=== PATIENT | female | born 1930 ===

== ENCOUNTER 2017-08-19 12:06 | Inpatient (IN) | payer OTHER ==
[~2017-08-19] VITALS: Ht 157.5 cm; Wt 64.0 kg
[~2017-08-19 12:06] MED LIST: AMIODARONE HCL200 MG NGT; ATENOLOL25 MG; Intestinex CAP PO; LASIX20 MG PO; METOPROLOL TAR100 MG PO; MONTELUKAST SOD10 MG PO; NeurRONTin 250MG/5ML PO; PANTOPRAZOLE SO40 MG PO; PAXIL20 MG; PRE PROTEIN 2030 ML PO; SUCRALFATE1 GM/10 ML PO; TORADOL60 MG; XOPENEX0.63 MG/3 IH
[2017-10-02] MEDS ORDERED: RISPERDAL0.5 MG PO (16:32)
[2017-10-02] MEDS ORDERED: ELIQUIS2.5 MG PO (16:40)
[2017-10-02] MEDS ORDERED: CLONAZEPAM0.5 MG PO (16:41)
== END 2017-10-02 17:08 | disposition other institution (70) | DRG 853 ==
LOC: ER 12:06 → MEDJ 18:38 → MEDI 18:38 → MEDJ 18:38 → ICU-2 08-21 20:23 → ICU 08-21 20:24 → MEDI 09-18 20:24 → SURH 09-18 20:24
PROC: BW21ZZZ Computerized Tomography (CT Scan) of Abdomen and Pelvis (ICD-10-PCS; 2017-08-19)
PROC: 4A12X4Z Monitoring of Cardiac Electrical Activity, External Approach (ICD-10-PCS; 2017-08-19)
PROC: B246ZZZ Ultrasonography of Right and Left Heart (ICD-10-PCS; 2017-08-20)
PROC: CW1NLZZ Planar Nuclear Medicine Imaging of Whole Body using Gallium 67 (Ga-67) (ICD-10-PCS; 2017-08-20)
PROC: 06HM33Z Insertion of Infusion Device into Right Femoral Vein, Percutaneous Approach (ICD-10-PCS; principal; 2017-08-21)
PROC: 02HV33Z Insertion of Infusion Device into Superior Vena Cava, Percutaneous Approach (ICD-10-PCS; 2017-08-21)
PROC: 5A1D70Z Performance of Urinary Filtration, Intermittent, Less than 6 Hours Per Day (ICD-10-PCS; 2017-08-22)
PROC: BW40ZZZ Ultrasonography of Abdomen (ICD-10-PCS; 2017-08-29)
PROC: 30233N1 Transfusion of Nonautologous Red Blood Cells into Peripheral Vein, Percutaneous Approach (ICD-10-PCS; 2017-08-29)
PROC: 05H633Z Insertion of Infusion Device into Left Subclavian Vein, Percutaneous Approach (ICD-10-PCS; 2017-09-08)
PROC: 05PYX3Z Removal of Infusion Device from Upper Vein, External Approach (ICD-10-PCS; 2017-09-14)
PROC: 05H633Z Insertion of Infusion Device into Left Subclavian Vein, Percutaneous Approach (ICD-10-PCS; 2017-09-14)
PROC: 4A12X4Z Monitoring of Cardiac Electrical Activity, External Approach (ICD-10-PCS; 2017-09-18)
PROC: 8E0ZXY6 Isolation (ICD-10-PCS; 2017-09-18)
PROC: 3E0F7GC Introduction of Other Therapeutic Substance into Respiratory Tract, Via Natural or Artificial Opening (ICD-10-PCS; 2017-09-23)
PROC: 0WP Anatomical Regions, General, Removal (ICD-10-PCS; 2017-09-25)
PROC: 4A033R1 Measurement of Arterial Saturation, Peripheral, Percutaneous Approach (ICD-10-PCS; 2017-09-28)
DX: A41.9 Sepsis, unspecified organism (principal); R65.21 Severe sepsis with septic shock; K72.00 Acute and subacute hepatic failure without coma; N17.8 Other acute kidney failure; N39.0 Urinary tract infection, site not specified; J90 Pleural effusion, not elsewhere classified; B17.10 Acute hepatitis C without hepatic coma; B78.0 Intestinal strongyloidiasis; I48.0 Paroxysmal atrial fibrillation; G51.0 Bell's palsy; I10 Essential (primary) hypertension; K26.9 Duodenal ulcer, unspecified as acute or chronic, without hemorrhage or perforation; D63.8 Anemia in other chronic diseases classified elsewhere; D72.1 Eosinophilia; T78.49XA Other allergy, initial encounter; B96.5 Pseudomonas (aeruginosa) (mallei) (pseudomallei) as the cause of diseases classified elsewhere; L89.152 Pressure ulcer of sacral region, stage 2